=== PATIENT | male | born 1995 | race Hispanic/Latino ===

== ENCOUNTER 2022-12-22 13:25 | Emergency (ER) | payer SELFPAY ==
[2022-12-22] VITALS (11 sets, daily range): BP systolic 108–133; BP diastolic 64–82
[2022-12-22] MEDS ORDERED: PREDNISONE20 MG PO (15:54)
[2022-12-22] MEDS ORDERED: ZYRTEC10 MG PO (15:54)
== END 2022-12-22 16:28 | disposition home or self-care (01) | DRG 918 ==
LOC: ED 13:25
DX: T63.461A Toxic effect of venom of wasps, accidental (unintentional), initial encounter (principal); Z91.030 Bee allergy status